=== PATIENT | female | born 1935 | race Caucasian/White ===

== ENCOUNTER → 2019-08-06 18:57 | Outpatient (CLI) | payer MEDICARE ==
[~2019-08-06 18:57] MED LIST: ACETAMINOPHEN500 M1 PO; CARTIA XT240 MG PO; CENTRUM SILVER1 EAC3 PO; COUMADIN5 MG PO; FUROSEMIDE40 MG PO; LEVOTHYROXINE100 MCG PO; LISINOPRIL10 MG PO; MELATONIN 3 MG1 TAB PO; PROVENTIL/2.5 MG/3 M INH
[2019-08-08 10:11] LABS: IMMUNOGLOBULIN A 365 mg/dL (64-422); IMMUNOGLOBULIN G 1209 mg/dL (700-1600); IMMUNOGLOBULIN M 45 mg/dL (26-217)
[2019-08-12 03:06] LABS: IMMUNOGLOBULIN E 184 IU/mL (6-495)
[2019-09-10 07:48] VITALS: BMI 21.9
== END | disposition home or self-care (01) ==
LOC: D.LABREF 18:57
PROVIDERS: ATTEND Internal Medicine Pulmonary Disease
DX: R06.00 Dyspnea, unspecified (principal)

== ENCOUNTER → 2019-08-20 09:22 | Outpatient (CLI) | payer MEDICARE, BC ==
[2019-08-21 07:14] LABS: IMMUNOGLOBULIN A 339 mg/dL (64-422); IMMUNOGLOBULIN G 1171 mg/dL (700-1600); IMMUNOGLOBULIN M 46 mg/dL (26-217)
--- NOTE | 2019-08-22 12:49 | EC ---
PATIENT:SOHA APPLE DATE OF SERVICE: 08/20/19 SEX: F MEDICAL RECORD: [id number] DATE OF : 33 LOCATION[facility] AGE OF PATIENT: 83 ADMISSION DATE: 08/20/19 REFERRING PHYSICIAN: INTERPRETING PHYSICIAN: OLEKSANDR GRIFFIN MD ECHOCARDIOGRAM REPORT ECHO CHARGES 4 ECHO COMPLETE Date: 08/20/19 CLINICAL DIAGNOSIS: DYSPNEA/MVR ECHOCARDIOGRAPHIC MEASUREMENTS (adult normal given) AC root (d.<3.7cm) 2.9 cm LV Septum d (<1.2 cm> 1.2 cm Valve Excursion 1.8 cm LV Septum (systole) 1.5 cm Left Atria (s.<4.0cm> 3.4 cm LVPW d(<1.2cm) 1.0 cm RV (d.<2.3cm) 2.4 cm LVPW (sytole) 1.6 cm LV diastole(<5.6CM) 5.3 cm MV E-F(>70mm/sec) cm LV systole 3.3 cm LVOT Diameter 1.5 cm MV exc.(>10mm) cm Est.ejection fraction (50-75%) % DOPPLER: LVIT cm/sec A 95.0 cm/sec E 203 cm/sec LA cm/sec RVSP 48.3 mmHg LVOT 82.0 cm/sec AOP1/2T m/s Asc. Ao 159 cm/sec RVOT 58.0 cm/sec RA cm/sec PA 100 cm/sec AV Gradient Peak 10.1 mmHg AV Mean 4.4 mmHg AV Area 1.0 cm MV Gradient Peak 19.1 mmHg MV Mean 6.3 mmHg MV Area cm COMMENTS: Invoice Control Clerk: Maritza JONESOE Guest Room Attendant: 1 Dr. Griffin TAPE# PACS Pericardial Effusion N DATE OF SERVICE: FINDINGS: 1. Left ventricular chamber size is within normal limits. Left ventricular systolic function is normal. Overall ejection fraction estimated at 60%. 2. Left atrium, right atrium and right ventricular chamber sizes are within normal limits. 3. 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 The remaining valvular structures have normal structure and motion. ECHOCARDIOGRAM REPORT [id number] SOHA APPLE 4. Doppler interrogation reveals moderate tricuspid regurgitation, no other valvular insufficiency or stenosis. Pulmonary systolic pressure is estimated 48 mmHg. 5. No evidence of pericardial effusion or left ventricular thrombus. TRANSINT:[id number] Voice Confirmation ID: [id number] DOCUMENT ID: [id number] OLEKSANDR GRIFFIN MD at 1249 CC: [id number] DICTATION DATE: 08/21/19 1518 GETTER OPERATOR: 08/21/19 2215 DEP CLI 08/20/19 [place] [id number]
[2019-08-23 22:06] LABS: IMMUNOGLOBULIN E 159 IU/mL (6-495)
[2019-09-10 07:48] VITALS: BMI 21.9
== END | disposition home or self-care (01) ==
LOC: D.ECHO 08-19 09:15 → D.LAB 08-19 09:15 → D.ECHO 08-19 09:30
PROVIDERS: ATTEND Internal Medicine Pulmonary Disease
DX: R06.00 Dyspnea, unspecified (principal); J47.9 Bronchiectasis, uncomplicated

== ENCOUNTER 2019-09-10 06:32 | Outpatient (CLI) | payer MEDICARE, BC ==
[~2019-09-10] VITALS: Ht 170.2 cm; Wt 63.6 kg
[2019-09-10 07:00] LABS: BASOPHILS 0.2 % (0-2); EOSINOPHILS 4.6 % (0-7); HEMATOCRIT 36.5 % (36.0-48.0); HEMOGLOBIN 11.2 g/dL (12-16); IMMATURE GRANULOCYTES 0.3 % (0-5); LYMPHOCYTES 19.4 % (15-50); MCH 27.1 pg (26.0-34.0); MCHC 30.7 g/dL (31.0-37.0); MCV 88.4 fL (80.0-100.0); MEAN PLATELET VOLUME 10.2 fL (7.4-10.4); MONOCYTES 10.4 % (2-11); NEUTROPHILS 65.1 % (40-80); PLATELET COUNT 235 10x3/uL (130-400); RBC 4.13 10x6/uL (4.00-5.40); RDW 16.1 % (11.5-14.5); WBC 9.3 10x3/uL (4.8-10.8)
[2019-09-10] MEDS ORDERED: LEVOTHYROXINE100 MCG PO (07:33)
[2019-09-10] MEDS ORDERED: LISINOPRIL10 MG PO (07:33)
[2019-09-10] MEDS ORDERED: CARTIA XT240 MG PO (07:34)
[2019-09-10] MEDS ORDERED: MELATONIN 3 MG1 TAB PO (07:34)
[2019-09-10] MEDS ORDERED: FUROSEMIDE40 MG PO (07:34)
[2019-09-10] MEDS ORDERED: ACETAMINOPHEN500 M1 PO (07:35)
[2019-09-10] MEDS ORDERED: COUMADIN5 MG PO (07:36)
[2019-09-10] MEDS ORDERED: CENTRUM SILVER1 EAC3 PO (07:36)
[2019-09-10] MEDS ORDERED: PROVENTIL/2.5 MG/3 M INH (07:37)
[2019-09-10 07:40] LABS: APTT 25.5 SECONDS (22.8-39.4); INR 1.14 (0.85-1.17); PROTIME 14.1 SECONDS (11.6-15.0)
[2019-09-10 07:48] VITALS: BP 156/44; Ht 170.2 cm; Wt 63.6 kg
--- NOTE | 2019-09-10 09:32 | NUR ---
0925-RECD POST BRONCHOSCOPY. ALERT. IV PATENT. DENIES PAIN. O2 ON AT 2L PER NC. RESP WITH EASE. FAMILY AT BEDSIDE.
--- NOTE | 2019-09-10 10:30 | NUR ---
1000 PT ON HOME O2 2 LITERS NC
--- NOTE | 2019-09-10 10:38 | NUR ---
1040 PT IN BATHROOM
--- NOTE | 2019-09-10 11:14 | NUR ---
1105 RECEIVED A FULL LIQ TRAY
--- NOTE | 2019-09-10 13:08 | NUR ---
0925 FREQ VS DONE NPO UNTIL 11AM 1100 RECIEVED A FULL LIQ TRAY AND TOLERATED WELL. SORE THROAT NOTED. 1210 IV REMOVED AND PRESSURE HELD
[2019-09-11 10:10] LABS: ANA REFLEX - DIRECT Negative (Negative)
[2019-09-11 13:10] LABS: FUNGUS STAIN Final report (())
[2019-09-11 16:08] LABS: ACID FAST SMEAR Negative (()); AFB SPECIMEN PROCESSING Concentration (())
[2019-09-15 10:08] LABS: FUNGAL - ASP FLAVUS Negative (Neg:<1:1); FUNGAL - ASP NIGER Negative (Neg:<1:1); FUNGAL - ASPER FUMIGATUS Negative (Neg:<1:1)
[2019-09-17 17:08] LABS: FUNGUS CULTURE RESULT 1 Candida albicans (()); FUNGUS MYCOLOGY CULTURE Preliminary report (())
== END 2019-09-10 12:30 | disposition home or self-care (01) ==
LOC: D.OPS 06:32
PROVIDERS: ATTEND Internal Medicine Pulmonary Disease
DX: J47.9 Bronchiectasis, uncomplicated (principal); I50.9 Heart failure, unspecified; R91.8 Other nonspecific abnormal finding of lung field; R06.00 Dyspnea, unspecified; R09.02 Hypoxemia; I27.21 Secondary pulmonary arterial hypertension; I38 Endocarditis, valve unspecified; R93.89 Abnormal findings on diagnostic imaging of other specified body structures; Z95.3 Presence of xenogenic heart valve; Z95.0 Presence of cardiac pacemaker

== ENCOUNTER → 2019-11-12 11:14 | Outpatient (CLI) | payer MEDICARE, BC ==
[2019-09-10 07:48] VITALS: BMI 21.9
[2019-11-13 06:09] LABS: ANA REFLEX - DIRECT Negative (Negative)
[2019-11-16 19:08] LABS: FUNGAL - ASP FLAVUS Negative (Neg:<1:1); FUNGAL - ASP NIGER Negative (Neg:<1:1); FUNGAL - ASPER FUMIGATUS Negative (Neg:<1:1)
== END | disposition home or self-care (01) ==
LOC: D.RT 11-08 08:00 → D.LAB 11-08 08:00 → D.RT 11:14
PROVIDERS: ATTEND Internal Medicine Pulmonary Disease
DX: J47.9 Bronchiectasis, uncomplicated (principal); R91.8 Other nonspecific abnormal finding of lung field